=== PATIENT | female | born 1935 | race Caucasian/White ===

== ENCOUNTER 2016-06-04 12:16 | Observation (INO) | payer MEDICARE ==
--- NOTE | ~2016-06-04 | CT71 ---
[facility] A Service [facility] RADIOLOGY TEXT RESULTS PATIENT: MEGHNA MCMILLAN LOCATION: [place] [address] : 37 UNIT #: [id number] AGE: [address]: Akil Albert MD SEX: F ORDER DR: [id number] [place] [id number] [facility]. [place], [place] [address] [id number] I MR#: [id number] Acc #: [id number] NAME: MEGHNA MCMILLAN : 1935 SEX: F STUDY DATE/TIME: 06/04/2016 12:07 UNIT: CEDOF ROOM: [id number] STUDY DESCRIPTION: CT Head Wo Contrast Attending Physician: Akil Albert M.D. Ordering Physician: Zoila Petit M.D. Primary Care Physician: No Primary Care Physician MEDICAL IMAGING REPORT This report is preliminary unless electronic signature is present EXAM CT head without IV contrast COMPARISON None INDICATIONS 81-year-old female with right temporal headache after falling and hitting her one side head on the curb today. TECHNIQUE This CT exam was performed with one or more of the following radiation dose reduction techniques: automatic control, adjustment of mA and/or kV according to patient size, and iterative reconstruction. FINDINGS No significant subcutaneous hematoma. There are some frothy secretions in the maxillary sinuses bilaterally, with air-fluid levels in the left maxillary sinus. There is mucosal thickening in the maxillary sinuses as well. No acute fractures or suspicious osseous lesions. Mastoid air cells and middle ears are well-aerated. There is ihdq-dm-kipywnes cerebral volume loss for patient age. There is no abnormal extraaxial fluid collection. No acute intracranial hemorrhage. No mass effect. No convincing evidence of acute ischemia. Calcifications of the cavernous internal carotid arteries bilaterally. IMPRESSION 1. No acute fracture or other acute intracranial abnormality. There are frothy secretions in the maxillary sinuses bilaterally which demonstrate mucosal thickening as well. Multiple air-fluid levels within the left maxillary sinus. Correlation to exclude signs of acute sinusitis recommended. 2. Uvkd-bq-vlclvpmz cerebral volume loss. [facility] A Service [facility] RADIOLOGY TEXT RESULTS PATIENT: MEGHNA MCMILLAN LOCATION: [place] [address] : 37 UNIT #: [id number] AGE: [address]: Akil Albert MD SEX: F ORDER DR: Dictated by... Robert Carrero M.D. THIS IS AN ELECTRONICALLY VERIFIED REPORT Robert Carrero M.D. at 06/07/2016 1:02 AM ABISAI/ivette TD: 06/04/2016 23:06 JOB #: [id number] MEDICAL IMAGING REPORT Page 1 of 1 COPY
--- NOTE | ~2016-06-04 | CR94 ---
[facility] A Service [facility] RADIOLOGY TEXT RESULTS PATIENT: MEGHNA MCMILLAN LOCATION: [place] [address] : 37 UNIT #: [id number] AGE: [address]: Akil Albert MD SEX: F ORDER DR: [id number] [facility] [address] [facility]. [place], [place] [address] [id number] I MR#: [id number] Acc #: [id number] NAME: MEGHNA MCMILLAN : 1935 SEX: F STUDY DATE/TIME: 06/04/2016 11:49 UNIT: CEDOF ROOM: [id number] STUDY DESCRIPTION: CR Elbow Min 3 Views Rt Attending Physician: Akil Albert M.D. Ordering Physician: Zoila Petit M.D. Primary Care Physician: No Primary Care Physician MEDICAL IMAGING REPORT This report is preliminary unless electronic signature is present EXAM Right elbow, 3 views. DATE OF EXAM 06/04/2016 COMPARISON None. INDICATIONS 41-year-old female with right elbow pain, swelling, bruising and deformity after falling onto the right elbow today. FINDINGS There is a displaced fracture through the coronoid process of the ulna, as well as a comminuted fracture through the junction of the olecranon and the ulnar shaft. There is dorsal convex angulation at this comminuted fracture line. There is also apparent displaced avulsion type fracture through the articular surface of the radial head. The radial head appears to be proximally subluxed or dislocated relative to the lateral condyle. The radial head sits inferior to the lateral condyle. Fracture fixation hardware is seen in the distal radius, incompletely included. No evidence of complication is seen. There is osteophyte formation of the distal radial ulnar joint. There is moderate hemarthrosis. There is also a large subcutaneous hematoma dorsal to the olecranon. IMPRESSION 1. There is a comminuted fracture of the proximal ulna involving the junction of the olecranon and the ulnar shaft where there is dorsal convex angulation. There is also superior and posterior subluxation of the olecranon which appears to maintain its anatomic relationship with the medial condyle otherwise. There is also an avulsion fracture through the coronoid process of the ulna which is mildly STS. [facility] A Service of [facility] RADIOLOGY TEXT RESULTS PATIENT: MEGHNA MCMILLAN LOCATION: [facility] 449-01 : 37 UNIT #: [id number] AGE: [address]: Akil Albert MD SEX: F ORDER DR: displaced, and there is a displaced avulsion type fracture which is intraarticular through the radial head, and the radial head is subluxed, and/or dislocated relative to the lateral humeral condyle. 2. Large elbow hemarthrosis, and large subcutaneous hematoma over the olecranon dorsally. Orthopedic consultation recommended. Dictated by... Robert Carrero M.D. THIS IS AN ELECTRONICALLY VERIFIED REPORT Robert Carrero M.D. at 06/07/2016 10:24 AM ABISAI/lon TD: 06/04/2016 22:55 JOB #: [id number] MEDICAL IMAGING REPORT Page 1 of 1 COPY
--- NOTE | ~2016-06-04 | CR94 ---
[facility] A Service of [facility] & [facility] RADIOLOGY TEXT RESULTS PATIENT: MEGHNA MCMILLAN LOCATION: [place] [address] : 37 UNIT #: [id number] AGE: [address]: Akil Albert MD SEX: F ORDER DR: [id number] [facility] [address] [facility] [place], [place] [address] [id number] I MR#: [id number] Acc #: [id number] NAME: MEGHNA MCMILLAN : 1935 SEX: F STUDY DATE/TIME: 06/05/2016 14:35 UNIT: [facility] ROOM: Count includes the [facility] STUDY DESCRIPTION: CR Elbow Min 3 Views Rt Attending Physician: Akil Albert M.D. Ordering Physician: Akil Albert M.D. Primary Care Physician: Primary Care Physician No MEDICAL IMAGING REPORT This report is preliminary unless electronic signature is present EXAM Right elbow intraoperative spot films. HISTORY Elbow fracture and internal fixation. FINDINGS 6 intraoperative fluoroscopic spot films demonstrate sequential placement of a hardware fixation across fractures of the proximal radius and ulna, which were demonstrated on elbow x-ray yesterday. Bone detail is limited but the bone alignment appears satisfactory and the hardware position appears satisfactory. IMPRESSION Internal fixation of the proximal radius and ulna. Bone alignment and hardware position appears satisfactory with limited evaluation of bone detail. Dictated by... Panchito Bridges M.D. THIS IS AN ELECTRONICALLY VERIFIED REPORT Panchito Bridges M.D. at 06/06/2016 3:03 PM Vlad TD: 06/06/2016 08:59 JOB #: [id number] MEDICAL IMAGING REPORT Page 1 of 1 COPY
--- NOTE | ~2016-06-04 | EKG ---
PATIENT: MEGHNA MCMILLAN UNIT #: [id number] Ventricular Rate: 71 BPM Atrial Rate: 71 BPM P-R Interval: 144 ms QRS Duration: 90 ms Q-T Interval: 406 ms QTC Calculation(Bezet): 441 ms P Tipton: 78 degrees Calculated R Tipton: 82 degrees Calculated T Tipton: 60 degrees Diagnosis Line: Normal sinus rhythm Diagnosis Line: Normal ECG Diagnosis Line: No previous ECGs available Diagnosis Line: Confirmed by GEORGE SEGAL MD ([id number]) on 06/06/2016 Diagnosis Line: 10:54:26 PM INTERPRETING MD: LUZMA DE LOS SANTOS
--- NOTE | ~2016-06-04 | OR ---
Unit #: [id number] #: [id number] Patient: MEGHNA MARQUEZ [id number] [address] [address] [id number] I MR#: [id number] NAME: MEGHNA MARQUEZ ROOM: 449 Date of Procedure: 06/05/2016 Admission Date: 06/04/2016 Surgeon: Akil Albert M.D. : 1935 Attending Physician: Akil Albert M.D. OPERATIVE REPORT PREOPERATIVE DIAGNOSES 1. Right Monteggia fracture with radial head dislocation. 2. Right radial head fracture. 3. Right coronoid fracture. POSTOPERATIVE DIAGNOSES 1. Right Monteggia fracture with radial head dislocation. 2. Right radial head fracture. 3. Right coronoid fracture. PROCEDURES PERFORMED 1. Open reduction and internal fixation of right olecranon/Monteggia fracture. 2. Open reduction and internal fixation of right radial head fracture. 3. Open reduction and internal fixation of right coronoid fracture. IMPLANTS 1. DePuy ALPS locking olecranon plate. 2. Biomet short locking radial neck rim plate. 3. #2 FiberWire suture through the coronoid and capsule for fixation of the coronoid fragment. MATTE CUTTER Maricarmen Arthur. ANESTHESIA General. ESTIMATED BLOOD LOSS 50 mL. TOURNIQUET TIME 2 hours. COMPLICATIONS None apparent. DRAINS Subcutaneous medium Hemovac x1. INDICATIONS FOR PROCEDURE Ms. Marquez is a 81-year-old female, who sustained a complex injury to her Unit #: [id number] #: [id number] Patient: MEGHNA MARQUEZ right elbow in a ground level fall. This was a Monteggia type fracture with a proximal ulnar fracture with radial head dislocation. Additionally, there was a complex fracture involving the sublime tubercle, supinator crest, and coronoid. We discussed open reduction and internal fixation and she elected to proceed. We discussed risks, benefits, and alternatives. DESCRIPTION OF PROCEDURE The patient was identified in the preoperative holding area. The operative site was marked. Preoperative antibiotics were administered. The patient was brought to the operating room and placed supine on the operating table with the arm on a hand table. The right arm was then prepped and draped in sterile fashion after application of nonsterile tourniquet. The arm was exsanguinated and tourniquet inflated. The patient was initially positioned with the arm folded across her chest for access to the posterior elbow. An extensile midline posterior incision was created and dissection carried down to the olecranon fracture. This was identified with a traumatic rupture through the deeper fascial layer. This was initially reduced provisionally with two K-wires. We did dissect both medially and laterally to identify the 2 butterfly fragments. On the radial side at the supinator crest, we were able to anatomically reduce this fragment. The plate of the desired size was selected and applied to the olecranon and subcutaneous border of the ulna. A small split in the triceps was created to allow for fixation of the plate directly to bone on the olecranon. The plate was provisionally secured both proximally and distally and fluoroscopic imaging used to confirm adequate reduction. We then placed locking screws distally. We did attempt to place a nonlocking screw just adjacent to the fracture, but this was in the fracture and had to be removed. Once all screws were placed proximally and distally, images were rechecked and demonstrated anatomic reduction. Attention was then turned to the radial head. The lateral skin flap was elevated and the Worthington interval approach performed to the radial head. The capsule was entered and elevated. The radial head fragment was identified. Additionally, there was another articular fragment noted, which was off the coronoid. This was mobile in the anterior elbow, but did have capsular attachments. The decision was made to fixate this with sutures. A 2.0 K-wire was drilled from the subcutaneous border of the ulna out the coronoid and capturing the fragment. A Hewson suture passer was placed and FiberWire suture passed. This FiberWire was then used to take 2 locking loop grasping bites of the anterior capsule. The K-wire was then taken on the other side of the olecranon plate again up the ulna and out the coronoid fragment. The Hewson suture passer was then again passed and the suture retrieved back out the ulna to be tied over the bone bridge in over the plate. Attention was then turned to fixation of the radial head. There was still soft tissue attachment to the radial head fragment. This was a simple split and was amenable to fixation. We elected to use a small buttress plate. The head was initially provisionally pinned with two K-wires. The buttress plate was then applied to bone. We drilled the dynamic hole first. Unfortunately, we utilized a 2.0 mm drill for this and the screw was a 2.0 mm screw. There was no other stainless steel 2.5 mm screws Unit #: [id number] #: [id number] Patient: MEGHNA MARQUEZ. There was no other room in the plate for smaller screw. We therefore elected to use a titanium 2.5 mm screw with the stainless plate. It was felt that this was acceptable risk in this instance. We then placed the remaining locking screws in the shaft and in the head. We then placed remaining locking screws in the shaft and head. The arm was taken through range of motion and she had full pronation and supination. It should be noted that the plate was positioned just slightly anterior to the typical so-called safe zone. This was due to the nature of the fracture being more anterior radial head fracture. The plate had to be positioned in this location to best allow for buttressing in the fragment. Again, the hand was taken through full range of motion and she did not have any impingement in the proximal radial ulnar joint with pronation and supination. Final images were obtained. This demonstrated concentric reduction of the elbow with anatomic reduction of the radial head and ulna. At this point, the FiberWire sutures were tied over the subcutaneous border of the ulna over the plate completing fixation of the coronoid fragment. The wounds were then irrigated. The tourniquet was deflated. The wounds were then closed with 0 Vicryl followed by 2-0 Vicryl in the subcutaneous tissues and yancy in the skin. A subcutaneous drain was left in place. The patient was placed in a well-padded posterior splint. DISPOSITION Stable to the recovery room. Dictated by... Yadira Meyer/moon TD: 06/06/2016 02:41 JOB #: [id number] OPERATIVE REPORT Page 1 of 1 X Akil Albert MD PROCEDURE OPERATIVE NOTE
--- NOTE | ~2016-06-04 | CT130 ---
[facility] A Service of [facility] & [facility] RADIOLOGY TEXT RESULTS PATIENT: MEGHNA MCMILLAN LOCATION: [address] 449[address]01 : 37 UNIT #: [id number] AGE: [address]: Akil Albert MD SEX: F ORDER DR: [id number] [facility] [address] [facility]. [place], [place] [address] [id number] I MR#: [id number] Acc #: [id number] NAME: MEGHNA MCMILLAN. : 1935 SEX: F STUDY DATE/TIME: 06/04/2016 20:29 UNIT: [facility] ROOM: [facility] STUDY DESCRIPTION: CT Upper Ext Rt Wo Cont Attending Physician: Akil Albert M.D. Ordering Physician: Janessa Rushing Primary Care Physician: Primary Care Physician No MEDICAL IMAGING REPORT This report is preliminary unless electronic signature is present EXAM CT right elbow HISTORY Elbow pain after fall today; unable to straighten arm. COMPARISON Right elbow films 06/04/2016 TECHNIQUE Thin section axial images were performed through the right elbow with multiplanar reconstructed images reviewed at a workstation. 3-D volume-rendered reconstructed images were also obtained. This CT exam was performed with one or more of the following radiation dose reduction techniques: automatic exposure control, adjustment of mA and/or kV according to patient size, and iterative reconstruction. FINDINGS Examination demonstrates a mildly comminuted fracture of the proximal ulna just proximal to the ulnar notch. There is a small fracture off the coronoid process of the ulna. There is mild apex dorsal angulation of the fracture. No disruption of the ulnar notch. Distal humerus appears intact. There is a displaced fracture off the anterior aspect of the humeral head with approximately an 8 mm fragment displaced about a centimeter with impaction of the fragment. This is estimated to involve no more than 25% of the radial head articular surface. There is corresponding posterior and lateral displacement of the radial head. There is a moderate amount of soft tissue swelling and edema about the elbow. IMPRESSION 1. Complex right elbow fracture. Anatomic detail even on CT is somewhat limited due to patient's inability to fully straighten the arm and associated image noise. The predominant fracture is a complete transverse STS. [facility] A Service of [facility] & [facility] RADIOLOGY TEXT RESULTS PATIENT: MEGHNA MCMILLAN LOCATION: [facility] 449-01 : 37 UNIT #: [id number] AGE: [address]: Akil Albert MD SEX: F ORDER DR: fracture through the proximal ulna just distal to the ulnar notch. Mild apex dorsal angulation. The fracture does extend towards the sublime tubercle and there may be a small fracture fragment off the sublime tubercle. 2. Posterior and lateral displacement or dislocation of the radial head with an impacted fracture involving the anterior fourth of the radial head which is displaced at least a centimeter. 3. No apparent disruption of the ulnar notch and the distal humerus appears intact. Dictated by... Margarito Nicholson M.D. THIS IS AN ELECTRONICALLY VERIFIED REPORT Margarito Nicholson M.D. at 06/05/2016 10:53 PM ANAND/cindy TD: 06/05/2016 13:29 JOB #: [id number] MEDICAL IMAGING REPORT Page 1 of 1 COPY
--- NOTE | ~2016-06-04 | CR91 ---
[facility] A Service of [facility] & [facility] RADIOLOGY TEXT RESULTS PATIENT: MEGHNA MCMILLAN LOCATION: [address] 449-01 : 37 UNIT #: [id number] AGE: [address]: Akil Albert MD SEX: F ORDER DR: [id number] [facility] [address] [place], [place] [address] [id number] I MR#: [id number] Acc #: [id number] NAME: MEGHNA MCMILLAN : 1935 SEX: F STUDY DATE/TIME: 06/05/2016 18:09 UNIT: [facility] ROOM: [facility] STUDY DESCRIPTION: CR Elbow 2 View Rt Attending Physician: Akil Albert M.D. Ordering Physician: Ed Doctor [id number] [facility] Primary Care Physician: Primary Care Physician No MEDICAL IMAGING REPORT This report is preliminary unless electronic signature is present EXAM Right elbow 2 views HISTORY Internal fixation of elbow fracture. FINDINGS 2 views of the right elbow were obtained. The AP view was obtained in an oblique position. There is internal fixation of the radial head and posterior plate and screw fixation of the proximal ulna extending to the olecranon. There is approximately 5.0 mm separation of the dominant ulnar fracture fragments in the AP projection. The elbow alignment is satisfactory. Surgical drain along the posterolateral margin of the elbow. IMPRESSION 1. Internal fixation of the proximal radius and ulna. 2. Approximately 5.0 mm separation of the dominant proximal ulnar fracture fragments on the AP view which was obtained in a slightly oblique position. 3. Surgical drain along the posterior margin of the elbow. Dictated by... Panchito Bridges M.D. THIS IS AN ELECTRONICALLY VERIFIED REPORT Panchito Bridges M.D. at 06/06/2016 3:04 PM Shawna TD: 06/06/2016 09:00 JOB #: [id number] MEDICAL IMAGING REPORT Page 1 of 1 COPY
--- NOTE | ~2016-06-04 | DS ---
Unit #: [id number] #: [id number] Patient: MEGHNA MARQUEZ [id number] [address] [address] [id number] I MR#: [id number] NAME: MEGHNA MARQUEZ. ROOM: [facility] Age: 81 Sex: F Admission Date: 06/04/2016 : 1935 Discharge Date: 06/06/2016 Attending Physician: Akil Albert M.D. DISCHARGE SUMMARY ADMITTING DIAGNOSIS Right elbow olecranon and radial neck fracture. DISCHARGE DIAGNOSES Right olecranon fracture, right radial head fracture, right coronoid fracture, status post open reduction and internal fixation. PROCEDURE On 06/05/2016, the patient underwent an ORIF of a right olecranon fracture, right radial head fracture, right coronoid fracture. Please see operative report for further details. BRIEF HISTORY Ms. Marquez is a 81-year-old female who sustained an injury to her elbow during a ground-level fall. She was then brought to the ER where she was diagnosed with right olecranon fracture and radial head fracture. CT scan was obtained of the right elbow and Dr. Albert recommended to this patient that she undergo ORIF of her right olecranon and right radial head fracture. The risks, benefits, and alternatives were discussed with the patient. She elected to proceed with surgery on 06/05/2016. HOSPITAL COURSE The patient was admitted on 06/04/2016 for a right radial head and olecranon fracture. None of her admissions, she remained stable. Her pain was controlled with [place] and morphine. On 06/05/2016, the patient went to the OR for an ORIF of right radial head, right olecranon, and right coronoid fracture. After surgery, the patient was transferred back to the orthopedic unit where she remained stable. On posotp day #1, which was 06/06/2016, the patient's vital signs remained stable. She was awake, alert, and oriented x3, in no acute distress. She worked with physical therapy on ambulation and they have cleared her as safe to discharge home. Her right upper extremity was examined. She is in a posterior splint. There was a small amount of serosanguineous drainage in the Hemovac drain. She had 8 mL out of her Hemovac drain overnight. She is neurovascularly intact in the medial, ulnar, and radial nerves. She has normal sensation to light touch in all 5 digits. Postop x-ray of the right elbow revealed that she is status post ORIF of right olecranon and right radial head fracture. Hardware remains in correct anatomical alignment. No evidence of loosening or migration. At this time, the patient's pain is well controlled and she and her family felt that she is to be discharged home. Hemovac drain was discontinued in the room today. Unit #: [id number] #: [id number] Patient: MEGHNA MARQUEZ DISPOSITION The patient will be discharged home where home health will be working with her. She also has a family that can visit frequently to help her with home care. DISCHARGE MEDICATIONS [place] 5/325 one to two tablets p.o. q.4 hours p.r.n. dispense #65, the patient will be sent home with a script for this. DISCHARGE INSTRUCTIONS AND FOLLOWUP The patient will be discharged home today with home health. She will follow up with Dr. Albert in 2 week's time for repeat x-rays of the right elbow. She will remain nonweightbearing of the right upper extremity and her posterior splint. She may wear her sling as needed for comfort. She may perform active range of motion of the right hand as tolerated. She will not take her splint wet. She may shower, but must keep the occlusive dressing over the splint. Dictated by... Katty Major APRN for Yadira Meyer/moon TD: 06/07/2016 03:42 JOB #: [id number] DISCHARGE SUMMARY Page 1 of 1 X KATTY MAJOR APRN X DISCHARGE SUMMARY
--- NOTE | ~2016-06-04 | HP ---
Unit #: [id number] #: [id number] Patient: MEGHNA MCMILLAN [id number] [address] [address] [id number] MR#: [id number] NAME: MEGHNA MCMILLAN. ROOM: 21075 Age: 81 Sex: F Admission Date: 06/04/2016 : 1935 Attending Physician: Akil Albert M.D. Primary Care Physician: No Primary Care Physician HISTORY AND PHYSICAL CHIEF COMPLAINT Right elbow pain. HISTORY OF PRESENT ILLNESS Ms. Mcmillan is a 81-year-old female who sustained injury to her right elbow during a ground level fall. She was in her usual state of health when she went for a walk earlier today. She tripped and fell injuring her right elbow. She denies any presyncopal symptoms. There is no preceding lightheadedness, dizziness, shortness of breath, chest pain or other preceding symptoms. She has been brought to the emergency department and diagnosed with a right olecranon fracture and radial head fracture. Orthopaedic consultation has been requested. She is currently comfortable in a sling in the emergency department requiring only occasional pain medication. PAST MEDICAL HISTORY None. PAST SURGICAL HISTORY 1. Bilateral mastectomy per medical record. 2. ORIF of right distal radius fracture. 3. Remote prior foot surgery for ORIF. SOCIAL HISTORY The patient has no alcohol or tobacco or drug use. She lives independently. She has a daughter available to help her as well as close neighbor. FAMILY HISTORY Noncontributory to the current illness. ALLERGIES No known drug allergies. MEDICATIONS No home medications. REVIEW OF SYSTEMS Ten systems are reviewed and negative except with regard to musculoskeletal complaints. PHYSICAL EXAMINATION GENERAL APPEARANCE: A healthy appearing 81-year-old female in no acute Unit #: [id number] #: [id number] Patient: MEGHNA MCMILLAN distress or discomfort. She has a small abrasion in the right periorbital region. PSYCHIATRIC: Awake, alert, oriented to person, place and time with situation with a normal range of mood and affect. CARDIAC: Regular rate and rhythm. PULMONARY: No increased work of breathing. Symmetric chest rise. ABDOMEN: Soft, nontender, nondistended. NEUROLOGIC: Intact median, ulnar and radial nerve motor and sensory function. VASCULAR: Hand is warm and well perfused. SKIN: There is a small skin tear over the proximal aspect of the olecranon. No evidence of open fracture. MUSCULOSKELETAL: There is soft tissue swelling about the right elbow. Range of motion is deferred given the known fracture. She has intact range of motion of the wrist and decreased range of motion of the fingers but intact neurologic function as noted above. Of note, she does have difficulty making a full fist on the affected side. DIAGNOSTIC STUDIES LABORATORY: BMP, PT, INR and CBC are reviewed and unremarkable. IMAGING: Plain film radiographs reviewed of the elbow and demonstrate a comminuted olecranon fracture as well as a radial head and neck fracture. ASSESSMENT AND PLAN This 81-year-old female with right elbow olecranon and radial head fracture. We have discussed open reduction internal fixation of the olecranon fracture. She will need fixation or replacement of the radial head as well. She has a posterior dislocation of the radial head with a free fragment of the radial head as well. We will plan for preoperative CT scan of the right elbow to further outline the bony injury. Again, we will plan for ORIF of the right olecranon tomorrow with possible ORIF of the radial head versus radial head replacement. Risks, benefits and alternatives have been reviewed and she elects to proceed. Dictated by Yadira Meyer/merlyn TD: 06/04/2016 19:22 JOB #: [id number] HISTORY AND PHYSICAL Page 1 of 1 X Akil Albert MD X HISTORY AND PHYSICAL
[2016-06-04 14:55] LABS: BASOPHIL% 0.6 % (0-2.5); EOSINOPHIL% 0.4 % (0.0-7.0); HEMATOCRIT 38.4 % (35.0-45.0); HEMOGLOBIN 12.7 gm/dL (12.0-16.0); LYMPHOCYTE% 16.2 % (17.0-45.0); MEAN CORPUSCULAR HEMOGLOBIN 30.4 PG (28-34); MEAN PLATELET VOLUME 7.5 FL (6.5-11.5); MONOCYTE# 0.4 X10e3 (0-1.0); MONOCYTE% 5.7 % (3.0-12.0); NEUTROPHIL# 4.9 X10e3 (1.5-7.1); NEUTROPHIL% 77.1 % (40-75); PLATELET COUNT 160 X10e3 (140-420); RED BLOOD COUNT 4.17 X10e (3.90-5.30); RED CELL DISTRIBUTION WIDTH 13.4 % (11.0-15.5); WHITE BLOOD COUNT 6.4 X10e3 (4.0-10.5)
[2016-06-04 15:00] LABS: DIFF IND NO
[2016-06-04 15:09] LABS: INR 1.1; PARTIAL THROMBOPLASTIN TIME 24.9 SECONDS (23.5-31.3); PROTHROMBIN TIME (PATIENT) 11.6 SECONDS (9.6-11.5)
[2016-06-04 15:21] LABS: BUN/CREATININE RATIO 18.33; CALCIUM SERUM 8.7 mg/dL (8.4-10.2); CREATININE SERUM 0.6 mg/dL (0.6-1.4); GLOM FILT RATE Estimated 86.7 mL/min (>60)
[2016-06-06] MEDS ORDERED: HYDROCODONE/APA1 T15 PO (13:28)
== END 2016-06-06 14:00 | disposition home or self-care (01) ==
LOC: CED 12:16 → CEDOF 13:25 → C4B 06-05 00:31
PROVIDERS: Student in an Organized Health Care Education/Training Program
PROC: 0PSH04Z Reposition Right Radius with Internal Fixation Device, Open Approach (ICD-10-PCS; principal; 2016-06-04)
DX: S52.271A Monteggia's fracture of right ulna, initial encounter for closed fracture (principal); S52.121A Displaced fracture of head of right radius, initial encounter for closed fracture; S52.041A Displaced fracture of coronoid process of right ulna, initial encounter for closed fracture; W01.0XXA Fall on same level from slipping, tripping and stumbling without subsequent striking against object, initial encounter; S01.81XA Laceration without foreign body of other part of head, initial encounter; Y92.9 Unspecified place or not applicable; Z23 Encounter for immunization; M25.021 Hemarthrosis, right elbow; G93.89 Other specified disorders of brain; J32.0 Chronic maxillary sinusitis; Z79.899 Other long term (current) drug therapy; Z90.13 Acquired absence of bilateral breasts and nipples
CPT/HCPCS: 12011; 36415; 70450; 73070; 73080; 73200; 76001; 76377; 80048; 82947; 85025; 85610; 85730; 86850; 86900; 86901; 90471; 90714; 90715; 93005; 96374; 96376; 97116; 97161; 99285; C1713; G0008; G0378; G8978-GP; G8979-GP; G8980-GP; J0690; J1170; J2250; J3010